=== PATIENT | male | born 1965 | race Hispanic/Latino ===

== ENCOUNTER 2021-02-02 20:22 | Emergency (ER) | payer OTHER ==
[2021-02-02 20:38] VITALS: BP 113/92
--- NOTE | 2021-02-02 20:40 | Emergency Department Report ---
Blank Doc - Documentation Documentation: 55-year-old male presents with chest pain, upper abdominal pain, headache with left scalp laceration status post fall with loss of consciousness. Patient is tachycardic, diaphoretic and has shortness of breath. 1- This is a initial triage assessment/medical screening only. Full assessment and work-up will be completed once the patient is in proper hospital gown, ED bed and in a private room setting. This initial assessment/diagnostic orders/clinical plan/ treatment(s) is/are subject to change based on pt's health status, clinical progression and re-assessment by fellow clinical providers in the ED. Further treatment and workup at subsequent clinical providers discret ion. Patient/guardians urged not to elope from ED as their condition may be serious if not clinically assessed and managed. 2-cardiac work-up initiated 3-imaging ordered with cervical collar ordered. 4-Miley HOLLIS notified to have the patient brought back [facility] for further elevation and treatment.
[2021-02-02 21:24] LABS: Basophils # (Auto) 0.1 K/mm3 (0.0-0.1); Basophils % (Auto) 0.8 % (0.0-1.8); Eosinophils # (Auto) 0.3 K/mm3 (0.0-0.4); Eosinophils % (Auto) 1.6 % (0.0-4.3); Hematocrit 36.6 % (35.5-45.6); Lymphocytes # (Auto) 2.2 K/mm3 (1.2-5.4); Lymphocytes % (Auto) 13.9 % (13.4-35.0); Mean Corpuscular HGB Conc 33 % (32-34); Mean Corpuscular Volume 93 fl (84-94); Monocytes # (Auto) 0.9 K/mm3 (0.0-0.8); Monocytes % (Auto) 5.6 % (0.0-7.3); Platelet Count 274 K/mm3 (140-440); Red Blood Count 3.94 M/mm3 (3.65-5.03); Red Cell Distribution Width 14.9 % (13.2-15.2)
[2021-02-02 21:33] LABS: INR 0.92 (0.87-1.13)
[2021-02-02 21:34] LABS: Partial Thromboplastin Time 23.3 Sec. (24.2-36.6)
--- NOTE | 2021-02-02 21:43 | Cat Scan Report ---
NONENHANCED CT SCAN OF THE HEAD: INDICATION / CLINICAL INFORMATION: 55 years Male; LOC s/p fall. TECHNIQUE: Routine CT head without contrast. All CT scans at this location are performed using CT dos e reduction for ALARA by means of automated exposure control. COMPARISON: None. FINDINGS: BRAIN / INTRACRANIAL CONTENTS: Laceration without significant scalp swelling in the left lateral supr aorbital scalp; no intracranial sequela from the trauma No acute hemorrhage, mass effect, midline shift, hydrocephalus, or acute, large territorial infarct. No chronic infarct or focal atrophy. Normal brain volume and ventricular/sulcal size for age. No sign ificant white matter abnormality. CRANIOCERVICAL JUNCTION: No significant abnormality. ORBITS: No significant abnormality of visualized orbits. SINUSES / MASTOIDS: Mucosal thickening in the anterior ethmoid air cells bilaterally; small amount of fluid accumulation in the left maxillary sinus ADDITIONAL FINDINGS: None. IMPRESSION: No intracranial sequela from the trauma Signer Name: Lo Macdonald MD Signed: 02/02/2021 9:39 PM Workstation Name: [id number]
[2021-02-02 21:44] LABS: Alanine Aminotransferase 37 units/L (7-56); Albumin 3.9 g/dL (3.9-5); BUN/Creatinine Ratio 10; Blood Urea Nitrogen 15 mg/dL (9-20); Calcium 8.7 mg/dL (8.4-10.2); Hemolysis Index 21
--- NOTE | 2021-02-02 21:49 | Cat Scan Report ---
Exam: CT cervical spine History: LOC s/p fall; Technique: Contiguous thin cut axial images obtained through the cervical spine. Sagittal and castañeda l reconstructions performed by the technologist. All CT scans at this location are performed using CT dose reduction for ALARA by means of automated exposure control. Findings: No priors. Subtle scoliosis towards the right side centering at C4 vertebral body level There is no evidence of fracture or traumatic subluxation. Vertebral bodies are normal in height and alignment. Intervertebral disc spaces: C3-C4: Trace anterolisthesis: Marked facet joint degenerative changes on the left side; left foramina l stenoses C4-C5: Marked facet joint hypertrophic changes on the left; fused facet on the left; left foraminal s tenoses C5-C6: Disc osteophyte complex extending bilaterally; neuroforamina normal C6-C7: Disc osteophyte complex towards the left side; left foraminal stenoses C7-T1: Normal neuroforamina No significant degenerative change seen in the uncinate or facet joints. No significant canal stenosi s or osseous foraminal narrowing. Surrounding soft tissues are grossly normal. Impression: No signs of acute bony trauma to the cervical spine. Signer Name: Lo Macdonald MD Signed: 02/02/2021 9:44 PM Workstation Name: [id number]
--- NOTE | 2021-02-02 22:10 | XRay Report ---
BILATERAL RIBS 5 VIEWS INDICATION / CLINICAL INFORMATION: fall with chest pain. COMPARISON: None available. FINDINGS: RIBS: No acute, displaced fracture or other acute abnormality. LUNGS: No acute findings. No pneumothorax. Signer Name: Todd Sosa MD Signed: 02/02/2021 10:05 PM Workstation Name: [id number]
--- NOTE | 2021-02-05 09:09 | Electrocardiograph Report ---
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
== END 2021-02-03 23:16 | disposition left against medical advice (07) ==
LOC: ED 20:22
DX: T14.90XA Injury, unspecified, initial encounter (principal); Z53.21 Procedure and treatment not carried out due to patient leaving prior to being seen by health care provider; W19.XXXA Unspecified fall, initial encounter; Y93.89 Activity, other specified; Y92.89 Other specified places as the place of occurrence of the external cause; Y99.8 Other external cause status
CPT/HCPCS: 36415; 70450; 71111; 72125; 80053; 84484; 85025; 85610; 85730; 93005